=== PATIENT | male | born 1975 | race Two or more races ===

== ENCOUNTER 2025-02-01 11:13 | Emergency (ER) | payer OTHER ==
[~2025-02-01] VITALS: Ht 180.3 cm; Wt 81.6 kg
[~2025-02-01 11:13] MED LIST: DURICEF; MUCINEX COLD L118 ML
[2025-02-01] MEDS ORDERED: CETIRIZINE HCL 5 MG/5 ML ML PO ONE (15:15)
[2025-02-01] MEDS ORDERED: ACETAMINOPHEN 500 MG GEL..CAP PO ONE ×2 (15:15→16:19)
[2025-02-01] MEDS ORDERED: CETIRIZINE HCL 5MG/5ML BLIST.PACK PO ONE (16:19)
[2025-02-01 17:01] LABS: BASO % 0.3 % (0.1-1.2); EOS # 0.00 (0.04-0.54); EOS % 0.0 % (0.7-7.0); LYMPH # 0.82 (1.18-3.74); LYMPH % 12.2 % (19.3-53.1); MEAN PLATELET VOLUME 9.60 fl (9.4-12.4); MONO # 0.87 (0.24-0.82); NEUT # 4.99 (1.56-6.13); NEUT % 74.3 % (34.0-71.1); RED CELL DISTRIBUTION WIDTH 13.3 % (11.6-14.4)
[2025-02-01 17:03] LABS: MONO % 12.9 % (4.7-12.5)
[2025-02-01 17:45] LABS: URINE APPEARANCE Cloudy; URINE BILIRRUBIN Negative (NEGATIVE); URINE BLOOD Trace; URINE COLOR Dark Yellow; URINE KETONE 15 (NEGATIVE); URINE LEUKOCYTE Negative; URINE NITRATE Negative; URINE PROTEIN 30 (NEGATIVE); URINE UROBILINOGEN 1.0 E.U./dl
[2025-02-01 17:49] LABS: URINE BACTERIA 100.6 uL (0.0-1933); URINE CAST 9.34 uL (0.0-1.40); URINE EPITHELIAL CELLS 33.4 uL (0.0-38.8); URINE RBC 21.6 uL (0.0-20.8); URINE WBC 23.9 uL (0.0-23.2)
[2025-02-01 17:51] LABS: COVID-19 AG NEGATIVE (NEGATIVE)
[2025-02-01 18:10] LABS: URINE GLUCOSE 100 MG/DL (NEGATIVE)
[2025-02-01] MEDS ORDERED: OSEL75CA PO (18:14)
[2025-02-01] MEDS ORDERED: TUSSIN DM LIQU118 ML PO (18:14)
[2025-02-01] MEDS ORDERED: ZYRTEC10 MG PO (18:14)
[2025-02-01] MEDS ORDERED: OSELTAMIVIR PHOSPHATE 75 MG CAPSULE PO ONE ×2 (18:30→18:37)
== END 2025-02-01 18:55 | disposition home or self-care (01) ==
LOC: ER 11:14
PROVIDERS: General Practice
DX: J10.1 Influenza due to other identified influenza virus with other respiratory manifestations (principal); R50.9 Fever, unspecified; R53.81 Other malaise; Z20.822 Contact with and (suspected) exposure to COVID-19